=== PATIENT | male | born 1990 ===

== ENCOUNTER 2020-03-18 10:52 | Emergency (ER) | payer SELFPAY ==
[2020-03-18 11:08] VITALS: BP 146/84
--- NOTE | 2020-03-18 11:37 | Emergency Department Report ---
Chief Complaint: Extremity Problem,Nontraumatic Stated Complaint: LOSING CIRCULATION IN JASIEL HANDS - HPI History of Present Illness: 29-year-old -[place] male presents to the emergency room complaining of bilateral hands that get numb and tingly. Patient states is been going about 2 to 3 weeks. Patient states he has noticed that at night when he is asleep. Patient states when he stretches his arms out that the feeling returns. 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 Patient denies any injury. - Exam Vital Signs: Vital Signs 03/18/20 11:06 Temperature 98.2 F Pulse Rate 91 H Respiratory 16 Rate Blood Pressure 146/84 O2 Sat by Pulse 98 Oximetry Physical Exam: Patient is alert and oriented x3 no acute distress nontoxic in appearance No accessory muscles used for breathing nonlabored breathing Bilateral hands full range of motion warm pain capillary refills are less than 2 no swelling appreciated Tinel and Phalen test positive. Ambulating without difficulties MSE screening note: Focused history and physical exam performed. Due to findings the following was ordered: 29-year-old -[place]ish male presents to the emergency room complaining of bilateral hands that get numb and tingly. Patient states is been going about 2 to 3 weeks. Patient states he has noticed that at night when he is asleep. Patient states when he stretches his arms out that the feeling returns. 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 Patient denies any injury. Discussed the patient is may be a new onset of carpal syndrome. Recommend arm splint ibuprofen naproxen and follow-up with orthopedic provider. ED Disposition for MSE Clinical Impression: Carpal tunnel syndrome, bilateral Disposition: DC-01 TO HOME OR SELFCARE Is pt being admited?: No Does the pt Need Aspirin: No Condition: Stable Instructions: Preventing Carpal Tunnel Syndrome Additional Instructions: Recommend [id number] wrist splints. Follow-up with retail specialist. Referrals: [facility] [Provider Group] - 3-5 Days Forms: Work/School Release Form(ED)
== END 2020-03-18 11:46 | disposition home or self-care (01) ==
LOC: ED 10:52
DX: G56.03 Carpal tunnel syndrome, bilateral upper limbs (principal)
CPT/HCPCS: 99281